=== PATIENT | female | born 1970 | race Caucasian/White ===

== ENCOUNTER 2018-12-18 13:53 | Emergency (ER) | payer OTHER ==
[~2018-12-18] VITALS: Ht 157.5 cm; Wt 56.8 kg
--- NOTE | 2018-12-18 14:57 | REP ---
Chest two views HISTORY: cough Comparison: 07/16/2015 The lungs are clear. The heart is normal in size. The pulmonary vasculature is normal in appearance. The bony structure is intact. IMPRESSION: No acute disease. Electronically Signed by Artie Walls MD 12/18/2018 02:49 P
[2018-12-18] MEDS ORDERED: MUCI600T37 PO (15:15)
[2018-12-18] MEDS ORDERED: TESS100C PO (15:15)
[2018-12-18 15:26] VITALS: BP 104/59
--- NOTE | 2018-12-19 06:32 | ECGEPIP ---
Stationary ECG Study [facility] - ED Test Date: 2018-12-18 Pat Name: CARMEN GLEZ Department: Room: - Gender: F Senior Librarian: ct : 1970 Requested By: OLIVERIO Saavedra PA-C Order Number: [id number] Reading MD: Jarett Rivera Measurements Intervals [place] Rate: 77 P: 80 DC: 170 QRS: 76 QRSD: 82 T: 81 QT: 347 QTc: 395 Interpretive Statements SINUS RHYTHM NO PRIORS FOR COMPARISON Electronically Signed On 12-19-2018 6:32:16 EST by Jarett Rivera
== END 2018-12-18 15:22 | disposition home or self-care (01) ==
LOC: M ED 13:53
DX: J40 Bronchitis, not specified as acute or chronic (principal); F17.210 Nicotine dependence, cigarettes, uncomplicated; Z88.0 Allergy status to penicillin

== ENCOUNTER 2022-07-28 14:40 | Emergency (ER) | payer OTHER ==
[~2022-07-28] VITALS: Ht 162.6 cm; Wt 58.8 kg
[~2022-07-28 14:40] MED LIST: MUCI600T37 PO; TESS100C PO
[2022-07-28] MEDS ORDERED: BENZONATATE 100MG CAPSULE PO ONE (18:25)
[2022-07-28 18:54] LABS: BASO % 0.3 % (0.0-1.0); EOS # 0.1 10^3/uL (0.0-0.5); EOS % 1.3 % (0.0-3.0); HEMATOCRIT 44.5 % (36.0-47.0); HEMOGLOBIN 14.7 g/dl (12.0-15.5); LYMPH # 2.5 10^3/uL (1.5-5.0); LYMPH % 39.9 % (24.0-44.0); MEAN CORPUSCULAR HEMOGLOBIN 30.8 pg (27.0-33.0); MEAN CORPUSCULAR VOLUME 93.3 fl (80.0-96.0); MONO # 0.4 10^3/uL (0.0-0.8); MONO % 6.4 % (2.0-8.0); NEUTROPHILS # 3.3 10^3/uL (1.5-8.5); NEUTROPHILS % 51.8 % (36.0-66.0); PLATELET COUNT, AUTOMATED 306 10^3/uL (150-450); RED BLOOD COUNT 4.77 10^6/uL (4.00-5.40); WHITE BLOOD COUNT 6.4 10^3/uL (4.0-10.0)
[2022-07-28 19:34] LABS: BLOOD UREA NITROGEN 14 MG/DL (7-18); CALCIUM LEVEL 9.2 MG/DL (8.5-10.1); CARBON DIOXIDE LEVEL 24 MEQ/L (21-32); CHLORIDE LEVEL 107 MEQ/L (98-107); CREATININE FOR GFR 0.68 MG/DL (0.55-1.30); GLOMERULAR FILTRATION RATE > 60.0 (>51); GLUCOSE, FASTING 86 MG/DL (70-100); POTASSIUM SERUM 4.5 MEQ/L (3.5-5.1); SODIUM LEVEL 135 MEQ/L (136-145)
[2022-07-28 19:37] LABS: CK-MB VALUE MASS 1.5 NG/ML (<3.6); MB/CK RELATIVE INDEX 1.06 (< OR =4)
[2022-07-28] MEDS: ALBUTEROL 90 MCG/ACT 8GM HFA INHALER INH SCH ×3 (20:24→20:54)
[2022-07-28 21:16] VITALS: O2SAT 92
[2022-07-28] MEDS ORDERED: methylPREDNISolone 125MG 2ML VIAL IV ONE (21:20)
[2022-07-28 21:59] VITALS: BP 127/75
[2022-07-28] MEDS: IPRATROPIUM 0.5MG/ALBUTEROL 2.5MG INH SOL UD 3ML (DUONEB) NEB PRN (22:02)
[2022-07-28] MEDS ORDERED: PROAAER10 INH (22:59)
[2022-07-28] MEDS ORDERED: MEDR4PAK PO (22:59)
[2022-07-28] MEDS ORDERED: ALBUTEROL 90 MCG/ACT 8GM HFA INHALER INH ONE ×2 (23:15→23:25)
== END 2022-07-28 23:28 | disposition home or self-care (01) ==
LOC: M ED 14:40
DX: R00.1 Bradycardia, unspecified (principal); J45.998 Other asthma; J06.9 Acute upper respiratory infection, unspecified; J00 Acute nasopharyngitis [common cold]; B34.9 Viral infection, unspecified; F17.200 Nicotine dependence, unspecified, uncomplicated; Z88.0 Allergy status to penicillin
CPT/HCPCS: 71046; 80048; 82550; 82553; 84484; 85025; 87486; 87581; 87633; 87798; 93005; 94640; 96374; 99284; J2930